=== PATIENT | male | born 1935 | race Caucasian/White ===

== ENCOUNTER 2020-12-16 12:57 | Emergency (ER) | payer OTHER ==
[~2020-12-16] VITALS: Ht 175.2 cm; Wt 81.6 kg
[~2020-12-16 12:57] MED LIST: BAYER ASPIRIN C81 MG PO; CHEWABLE VITE1 CTB PO; DILTIAZEM240 M1 PO; HYDR25T PO; IRBESARTAN300 M1 PO; NATURE'S BLEND F1 MG PO; NIACIN50 M1 PO; SKELAXIN800 M1 PO; VOLTAREN50 M1 PO
[2020-12-16 13:42] LABS: HEMATOCRIT 38.5 % (42.0-52.0); MEAN CELL VOLUME 82.6 fl (80.0-94.0); MEAN CORPUSCULAR HGB 26.4 pg (27.0-31.0); MEAN CORPUSCULAR HGB CONC 31.9 g/dl (33.0-37.0); MEAN PLATELET VOLUME 12.7 fl (9.6-12.3); PLATELET COUNT AUTOMATED 350 10*3/uL (130-400); RED BLOOD COUNT 4.66 10*6/uL (4.50-5.90); RED CELL DISTRI WIDTH 16.7 % (0-14.5); WHITE BLOOD COUNT 22.1 10*3/uL (4.8-10.8)
[2020-12-16 13:57] LABS: BURR CELLS FEW; OVALOCYTES FEW; PLATELET SUFFICIENCY NORMAL (NORMAL); TOTAL CELLS COUNTED 100 #CELLS; VACUOLATION OF NEUTROPHILS SLIGHT
[2020-12-16 14:17] LABS: ACT PARTIAL THROMBO TIME 31.2 SECONDS (20.0-32.1); INTERNATIONAL NORM RATIO 1.2 (2.0-3.5)
[2020-12-16 14:28] LABS: ALBUMIN 2.3 gm/dl (3.1-4.5); ALKALINE PHOSPHATASE 182 U/L (45-117); BUN 38 mg/dl (7-24); CHLORIDE 103 mmol/L (98-107); LIPASE 38 U/L (73-393); POTASSIUM 3.4 mmol/L (3.5-5.1); SGOT/AST 61 IU/L (3-35); SGPT/ALT 137 U/L (12-78); SODIUM 138 mmol/L (136-145); TOTAL PROTEIN 7.2 gm/dL (6.4-8.2)
[2020-12-16 14:30] LABS: TROPONIN I < 0.015 ng/ml (<0.045)
[2020-12-16 17:30] LABS: BILIRUBIN 2+ (Negative); BLOOD Negative (Negative); CLARITY Clear (Clear); COLOR Dark Yellow (Yellow); GLUCOSE Negative (Negative); KETONE Negative (Negative); LEUKO ESTERASE Trace (Negative); NITRITE Positive (Negative); SPECIFIC GRAVITY 1.025 (1.001-1.030)
[2020-12-16 17:40] LABS: MUCOUS TRACE
== END 2020-12-16 18:50 | disposition short-term general hospital (02) ==
LOC: ED 12:57
PROVIDERS: Emergency Medicine
DX: K75.0 Abscess of liver (principal); R65.20 Severe sepsis without septic shock; I10 Essential (primary) hypertension; F17.200 Nicotine dependence, unspecified, uncomplicated; Z79.899 Other long term (current) drug therapy; Z96.641 Presence of right artificial hip joint; Z96.642 Presence of left artificial hip joint

== ENCOUNTER → 2021-03-27 | Outpatient (CLI) | payer OTHER ==
[2021-03-27 10:34] LABS: BUN 16 mg/dl (7-24); CREATININE 0.84 mg/dL (0.70-1.30)
== END | disposition home or self-care (01) ==
LOC: LAB 01:22
PROVIDERS: ATTEND Physician Assistant
DX: Z01.818 Encounter for other preprocedural examination (principal)

== ENCOUNTER → 2021-03-28 | Outpatient (CLI) | payer OTHER | END | disposition home or self-care (01) | LOC: CT 01:40 → LAB 09:00 | PROVIDERS: ATTEND Physician Assistant | DX: C25.0 Malignant neoplasm of head of pancreas (principal); J90 Pleural effusion, not elsewhere classified; K83.8 Other specified diseases of biliary tract; K86.89 Other specified diseases of pancreas; N28.1 Cyst of kidney, acquired; I70.0 Atherosclerosis of aorta; K57.30 Diverticulosis of large intestine without perforation or abscess without bleeding; Z96.643 Presence of artificial hip joint, bilateral; Z96.89 Presence of other specified functional implants ==

== ENCOUNTER 2021-11-11 10:12 | Emergency (ER) | payer OTHER ==
[~2021-11-11] VITALS: Wt 73.9 kg
[2021-11-11 10:40] LABS: BASO % 0.6 % (0.0-1.0); EOS % 0.2 % (1.0-4.0); HEMATOCRIT 30.8 % (42.0-52.0); LYMPH # 0.4 10*3/uL (1.3-4.4); LYMPH % 7.3 % (27.0-41.0); MEAN CELL VOLUME 91.4 fl (80.0-94.0); MEAN CORPUSCULAR HGB CONC 32.8 g/dl (33.0-37.0); MEAN PLATELET VOLUME 11.4 fl (9.6-12.3); MONO # 0.4 10*3/uL (0.1-1.0); MONO % 7.7 % (3.0-9.0); NEUT # 4.4 10*3/uL (2.3-7.9); PLATELET COUNT AUTOMATED 97 10*3/uL (130-400); RED BLOOD COUNT 3.37 10*6/uL (4.50-5.90); RED CELL DISTRI WIDTH 16.9 % (0-14.5); WHITE BLOOD COUNT 5.2 10*3/uL (4.8-10.8)
[2021-11-11 10:51] LABS: ACT PARTIAL THROMBO TIME 34.1 SECONDS (20.0-32.1); INTERNATIONAL NORM RATIO 1.3 (2.0-3.5)
[2021-11-11 11:10] LABS: ALKALINE PHOSPHATASE 105 U/L (45-117); BUN 28 mg/dl (7-24); CHLORIDE 118 mmol/L (98-107); CPK 348 U/L (39-308); CREATININE 1.18 mg/dL (0.70-1.30); POTASSIUM 4.1 mmol/L (3.5-5.1); SGOT/AST 45 IU/L (3-35); SGPT/ALT 28 U/L (12-78); SODIUM 149 mmol/L (136-145); TOTAL PROTEIN 6.3 gm/dL (6.4-8.2)
[2021-11-11 11:17] LABS: BILIRUBIN Negative (Negative); BLOOD Negative (Negative); CLARITY Clear (Clear); COLOR Dark Yellow (Yellow); GLUCOSE Negative (Negative); KETONE Trace (Negative); LEUKO ESTERASE Negative (Negative); NITRITE Negative (Negative); SPECIFIC GRAVITY 1.025 (1.001-1.030)
[2021-11-11 11:31] LABS: BACTERIA TRACE; EPITHELIAL CELLS 0-2; RBC 0-2 rbc/hpf (0-2)
== END 2021-11-11 17:14 ==
LOC: ED 10:12
PROVIDERS: Emergency Medicine
DX: E86.0 Dehydration (principal); E87.0 Hyperosmolality and hypernatremia; I10 Essential (primary) hypertension; Z79.899 Other long term (current) drug therapy; Z79.82 Long term (current) use of aspirin; Z87.891 Personal history of nicotine dependence